=== PATIENT | male | born 1975 | race Caucasian/White ===

== ENCOUNTER 2020-12-09 10:44 | Outpatient (CLI) | payer MEDICAID ==
[~2020-12-09] VITALS: Ht 172.7 cm; Wt 63.5 kg
--- NOTE | 2020-12-09 11:59 | Consultation ---
DATE OF CONSULTATION: 12/09/2020 GASTROENTEROLOGY CONSULTATION CONSULTING PHYSICIAN: Johnathan Sinha MD. CHIEF COMPLAINT: Referral for colonoscopy. HISTORY OF PRESENT ILLNESS: This is a 45-year-old male had diverticulitis, was told that he needs a colonoscopy after his diverticulitis has healed. He is complaining of some mucousy stools and some bloody stool on and off, bloating. Also complained of about 15 pounds of weight loss, unwanted weight loss. PAST MEDICAL HISTORY: History of diverticulitis. PAST SURGICAL HISTORY: None. MEDICATIONS: Please see medication reconciliation list. FAMILY HISTORY: Mother had lung cancer. SOCIAL HISTORY: The patient denies any tobacco, alcohol, or drug abuse. Occasionally using marijuana. ALLERGIES: No known allergies. REVIEW OF SYSTEMS: As dictated above. PHYSICAL EXAMINATION: VITAL SIGNS: Temperature is 98, blood pressure 130/79, pulse 65, respirations 20. Height is 5 feet 8 inches. Weight is 140. HEENT: Normocephalic and atraumatic. Sclerae are anicteric. NECK: Supple. No evidence of obvious lymphadenopathy. CARDIOVASCULAR: Regular rate and rhythm. Plus S1-S2. LUNGS: Clear to auscultation bilaterally. ABDOMEN: Positive bowel sounds. Soft and nontender. No rebound. No guarding. No peritoneal sign. EXTREMITIES: No clubbing, no cyanosis, no edema. ASSESSMENT AND PLAN: This is a 45-year-old male with history of diverticulitis, needs colonoscopy. Also has some rectal bleeding and unwanted weight loss, also need endoscopy. The patient was given instructions for both. Risks and benefits of procedure was explained to him. We will schedule him as soon as authorization is obtained. Johnathan Sinha M.D. DR: THEO JOB#: [id number] CC:
== END 2020-12-09 11:17 | disposition home or self-care (01) ==
LOC: PAN 10:44
DX: R63.4 Abnormal weight loss (principal); R14.0 Abdominal distension (gaseous); K92.1 Melena; Z80.1 Family history of malignant neoplasm of trachea, bronchus and lung; K62.5 Hemorrhage of anus and rectum
CPT/HCPCS: 99203